=== PATIENT | female | born 1975 | race Caucasian/White ===

== ENCOUNTER 2021-05-22 14:20 | Emergency (ER) | payer OTHER ==
[~2021-05-22] VITALS: Ht 162.6 cm; Wt 56.7 kg
[~2021-05-22 14:20] MED LIST: ALBU90OI INH; AMIT10 PO; ANTI DEPRESSENT; AZIT250 PO; BENZ100A PO; BIRTH CONTROL; CEPH500 PO; CODGUAEL PO; CYCL10 PO; Cyclobenzaprine5 MG PO; ERYT500 PO; FURO20 PO; HYDACE5 PO; HYDHCL25 PO; IBUP200 PO; IBUP600 PO; LOPE2C PO; METPRE4DP PO; METR500 PO; NAPR500 PO; NAPR550 PO; NEOPOLHYDS RIGHTEAR; NITR100CA PO; OXYACE5T PO; PARO10 PO; PHENA100 PO; PRED20 PO; PROC10 PO; PROM25 PO; RXCYCL10 PO; RXHYDACE PO; RXPROM25 PO; SIME80CH PO; SULTRIDS; SULTRIDS PO; SUMA25 PO
== END 2021-05-22 15:42 | disposition home or self-care (01) ==
LOC: ER 14:20
DX: S20.213A Contusion of bilateral front wall of thorax, initial encounter (principal); F17.200 Nicotine dependence, unspecified, uncomplicated; Z88.0 Allergy status to penicillin; Z88.1 Allergy status to other antibiotic agents; Z79.899 Other long term (current) drug therapy; Y04.0XXA Assault by unarmed brawl or fight, initial encounter
CPT/HCPCS: 71046; 99284-25

== ENCOUNTER 2024-12-14 02:03 | Emergency (ER) | payer OTHER ==
[~2024-12-14] VITALS: Ht 162.6 cm; Wt 52.6 kg
[2024-12-14 02:35] VITALS: BP 138/98
[2024-12-14 03:51] LABS: Source, Urine Clean Catch
[2024-12-14 04:06] LABS: Bilirubin, Urine Neg (Neg); Blood, Urine 1+ (Neg); Glucose Qualitative, Urine Neg (Neg); Ketones, Urine Neg (Neg); Leukocyte Esterase, Urine Neg (Neg); Nitrite, Urine Neg (Neg); Protein, Urine Neg (Neg); Specific Gravity, Urine 1.025 (1.003-1.022); Urobilinogen, Urine 1+ (Normal)
[2024-12-14 04:20] LABS: Appearance, Urine Clear (Clear); Color, Urine Yellow (P-Yellow)
[2024-12-14 04:21] LABS: Bacteria Few /hpf; Red Blood Cells, Urine 0-2 /hpf (0-2); Squamous Epithelial Cells Few /hpf (Few); White Blood Cells, Urine 0-2 /hpf (0-5)
== END 2024-12-14 04:23 | disposition home or self-care (01) ==
LOC: ER 02:03
PROVIDERS: Emergency Medicine
DX: R10.31 Right lower quadrant pain (principal); F17.200 Nicotine dependence, unspecified, uncomplicated; Z88.2 Allergy status to sulfonamides; Z88.0 Allergy status to penicillin; Z88.1 Allergy status to other antibiotic agents
CPT/HCPCS: 81001; 81025; 99284